=== PATIENT | female | born 1940 | race Caucasian/White ===

== ENCOUNTER → 2016-08-12 | Outpatient (CLI) | payer MEDICARE, BC ==
[~2016-08-12] MED LIST: CRESTOR5 MG PO; EPA/GLA1 SGL PO; EVISTA60 MG PO; FOLIC ACID 40400 MCG PO; IMODIUM A-D2 MG PO; IRON325 M1 PO; LEXAPRO 10MG10 MG PO; MULTIPLE VITAMI1 CAP PO; NORCO 325 MG-7.1 TAB PO; PEPCID 20MG TAB20 MG PO; ROXICODONE 55 MG/TAB PO; TYLENOL PM EXTR1 TA1 PO; VITAMIN C500 MG PO; VITAMIN D1000 IU PO; VITAMIN D5000 IU PO
== END ==
LOC: COL.RAD 14:49
DX: K44.9 Diaphragmatic hernia without obstruction or gangrene (principal); R10.11 Right upper quadrant pain
CPT/HCPCS: Q9967

== ENCOUNTER → 2016-10-06 | Outpatient (CLI) | payer MEDICARE, BC | LOC: MC.RAD 16:00 | DX: Z12.31 Encounter for screening mammogram for malignant neoplasm of breast (principal); R92.1 Mammographic calcification found on diagnostic imaging of breast ==

== ENCOUNTER 2017-12-19 11:38 | Day surgery (SDC) | payer MEDICARE, BC ==
[~2017-12-19] VITALS: Ht 157.5 cm; Wt 69.9 kg
[2017-12-19 12:11] VITALS: BP 93/61; PULSE 79; TEMP 98.7
[2017-12-19] MEDS ORDERED: EVISTA 60MG60 MG/TAB PO (12:11)
[2017-12-19 13:40] VITALS: BP 96/50; PULSE 69; TEMP 98.5
[2017-12-19 13:55] VITALS: BP 88/45; PULSE 63
[2017-12-19 14:10] VITALS: BP 96/53; PULSE 61
[2017-12-19 14:30] VITALS: BP 117/59; PULSE 62
== END 2017-12-19 14:55 | disposition home or self-care (01) ==
LOC: SDCO 11:38
DX: K64.0 First degree hemorrhoids (principal); R19.7 Diarrhea, unspecified; K44.9 Diaphragmatic hernia without obstruction or gangrene; Z86.010 Personal history of colon polyps; Z88.2 Allergy status to sulfonamides
CPT/HCPCS: J2250; J3010; J7030

== ENCOUNTER → 2018-07-31 | Outpatient (CLI) | payer MEDICARE, BC ==
[~2018-07-31] MED LIST changes: +EVISTA 60MG60 MG/TAB PO
== END ==
LOC: MC.RAD 09:00
DX: Z12.31 Encounter for screening mammogram for malignant neoplasm of breast (principal)

== ENCOUNTER → 2020-05-27 | Outpatient (CLI) | payer MEDICARE, BC | LOC: MC.RAD 14:45 | DX: Z12.31 Encounter for screening mammogram for malignant neoplasm of breast (principal) ==

== ENCOUNTER → 2021-01-26 | Outpatient (CLI) | payer MEDICARE, BC ==
--- NOTE | 2021-01-26 08:30 | NUR ---
Patient had caffine less than 8 hours before test. Will need to reschedule.
== END ==
LOC: COL.PUL 01-19 08:00
DX: R06.00 Dyspnea, unspecified (principal)

== ENCOUNTER → 2021-02-09 | Outpatient (CLI) | payer MEDICARE, BC | LOC: COL.PUL 07:53 | DX: R06.00 Dyspnea, unspecified (principal) ==

== ENCOUNTER 2024-02-02 13:41 | Emergency (ER) | payer MEDICARE, BC ==
[~2024-02-02] VITALS: Ht 154.9 cm; Wt 61.4 kg
[2024-02-02 13:47] VITALS: TEMP 97.9
[2024-02-02 14:25] LABS: BASO % 0.3 % (0.0-2.0); EOS # 0.1 K/mm3 (0.0-0.7); EOS % 1.3 % (0.0-4.0); GRAN # 4.1 K/mm3 (1.4-6.5); GRAN % 65.5 % (42.2-75.2); HEMOGLOBIN 13.4 g/dl (12.5-16.0); LYMPH # 1.4 K/mm3 (1.2-3.4); LYMPH % 22.3 % (20.0-51.0); MEAN CELL VOLUME 96 fl (80.0-100.0); MEAN CORPUSCULAR HEMOGLOBIN 34 pg (27-31); MEAN CORPUSCULAR HGB CONC 35 g/dl (33.0-37.0); MEAN PLATELET VOLUME 9.6 fl (7.4-10.4); MONO # 0.7 K/mm3 (0.1-0.6); MONO % 10.3 % (1.7-9.3); PLATELET COUNT 197 K/mm3 (130-400); RED BLOOD COUNT 3.97 M/mm3 (4.10-5.30)
[2024-02-02 14:44] LABS: ALANINE AMINOTRANSFERASE 24 U/L (0-55); ALKALINE PHOSPHATASE 67 U/L (40-150); ANION GAP 11 mmol/L (7-16); AST,SGOT 27 U/L (5-34); BILIRUBIN,TOTAL 0.5 mg/dL (0.2-1.2); BLOOD UREA NITROGEN 19 mg/dL (10-20); CALCIUM 9.8 mg/dL (8.4-10.2); CHLORIDE 104 mEq/L (98-107); CREATININE, serum 0.84 mg/dL (0.57-1.11); GLUCOSE 100 mg/dL (70-99); MAGNESIUM 1.9 mg/dL (1.6-2.6); POTASSIUM 4.3 mEq/L (3.5-4.5); SODIUM 137 mEq/L (136-145); TOTAL PROTEIN 6.4 g/dl (6.2-8.1)
[2024-02-02 14:52] LABS: TROPONIN-I < 0.010 ng/mL (0.00-0.033)
[2024-02-02] MEDS ORDERED: Iohexol 300 - 100 ML VIAL IV ONE (15:26)
[2024-02-02] MEDS ORDERED: NS 100 ML IV SCH (15:26)
[2024-02-02 16:08] LABS: COLLECTION METHOD CLEAN CATCH
[2024-02-02 16:21] LABS: URINE APPEARANCE CLEAR (CLEAR/HAZY); URINE BLOOD NEGATIVE (NEGATIVE); URINE COLOR YELLOW (YELLOW); URINE GLUCOSE NEGATIVE (NEGATIVE); URINE KETONE NEGATIVE (NEGATIVE); URINE NITRATE NEGATIVE (NEGATIVE); URINE PROTEIN(semi-quant) NEGATIVE (NEGATIVE); URINE UROBILINOGEN 0.2 E.U/dL (0.2-1.0)
[2024-02-02] MEDS ORDERED: Ketorolac 15 MG/ML VIAL IV ONE (16:30)
[2024-02-02 16:36] VITALS: BP 157/79; PULSE 58
== END 2024-02-02 16:45 | disposition home or self-care (01) ==
LOC: COL.ER 13:41
PROVIDERS: Emergency Medicine
DX: R91.1 Solitary pulmonary nodule (principal); R07.81 Pleurodynia
CPT/HCPCS: J1885; Q9967

== ENCOUNTER 2024-04-03 10:39 | Emergency (ER) | payer MEDICARE, BC ==
[~2024-04-03] VITALS: Ht 154.9 cm; Wt 59.1 kg
[~2024-04-03 10:39] MED LIST changes: -LEXAPRO 10MG10 MG PO; +LEXAPRO 5MG5 MG PO
[2024-04-03 10:44] VITALS: TEMP 97.6
[2024-04-03] MEDS ORDERED: NS 1,000 ML IV ONE (12:30)
[2024-04-03] MEDS ORDERED: Ondansetron 4 MG/2 ML VIAL IV ONE (12:30)
[2024-04-03 13:04] LABS: BASO % 0.4 % (0.0-2.0); EOS # 0.1 K/mm3 (0.0-0.7); EOS % 1.1 % (0.0-4.0); GRAN # 7.2 K/mm3 (1.4-6.5); GRAN % 77.4 % (42.2-75.2); HEMATOCRIT 38.6 % (37.0-47.0); HEMOGLOBIN 13.4 g/dl (12.5-16.0); LYMPH # 1.2 K/mm3 (1.2-3.4); LYMPH % 12.4 % (20.0-51.0); MEAN CELL VOLUME 99 fl (80.0-100.0); MEAN CORPUSCULAR HEMOGLOBIN 34 pg (27-31); MEAN CORPUSCULAR HGB CONC 35 g/dl (33.0-37.0); MEAN PLATELET VOLUME 9.7 fl (7.4-10.4); MONO # 0.8 K/mm3 (0.1-0.6); MONO % 8.4 % (1.7-9.3); PLATELET COUNT 189 K/mm3 (130-400); REDCELL DISTRIBUTION WIDTH-CV 13.1 % (11.5-14.5)
[2024-04-03 13:06] LABS: INR 1.1 (0.8-3.0); PROTHROMBIN TIME 11.5 SECONDS (9.7-12.8)
[2024-04-03 13:15] LABS: COLLECTION METHOD CLEAN CATCH
[2024-04-03 13:19] LABS: ALANINE AMINOTRANSFERASE 22 U/L (0-55); ALBUMIN 3.8 g/dL (3.4-4.8); ALKALINE PHOSPHATASE 68 U/L (40-150); ANION GAP 11 mmol/L (7-16); AST,SGOT 26 U/L (5-34); BILIRUBIN,TOTAL 0.5 mg/dL (0.2-1.2); BLOOD UREA NITROGEN 21 mg/dL (10-20); CALCIUM 9.9 mg/dL (8.4-10.2); CHLORIDE 104 mEq/L (98-107); CREATININE, serum 0.78 mg/dL (0.57-1.11); GLUCOSE 96 mg/dL (70-99); POTASSIUM 4.4 mEq/L (3.5-4.5); SODIUM 140 mEq/L (136-145); TOTAL PROTEIN 6.5 g/dl (6.2-8.1)
[2024-04-03 13:22] LABS: PH 6.5 (5.0-8.5); URINE APPEARANCE CLEAR (CLEAR/HAZY); URINE BLOOD NEGATIVE (NEGATIVE); URINE COLOR YELLOW (YELLOW); URINE GLUCOSE NEGATIVE (NEGATIVE); URINE KETONE NEGATIVE (NEGATIVE); URINE NITRATE NEGATIVE (NEGATIVE); URINE PROTEIN(semi-quant) NEGATIVE (NEGATIVE); URINE UROBILINOGEN 0.2 E.U/dL (0.2-1.0)
[2024-04-03 13:42] LABS: TROPONIN-I < 0.010 ng/mL (0.00-0.033)
[2024-04-03 13:55] LABS: LIPASE 33 U/L (8-78)
[2024-04-03] MEDS ORDERED: NS 100 ML IV SCH (14:15)
[2024-04-03] MEDS ORDERED: Iohexol 300 - 100 ML VIAL IV ONE (14:15)
[2024-04-03] MEDS ORDERED: ZOFRAN ODT4 MG PO (15:49)
[2024-04-03 16:05] VITALS: BP 101/63; PULSE 72
[2024-04-08] MEDS ORDERED: BUSPAR5 MG PO (13:08)
[2024-04-08] MEDS ORDERED: BENTYL 10MG10 MG/CAP PO (13:09)
[2024-04-08] MEDS ORDERED: NORVASC2.5 MG PO (13:09)
[2024-04-08] MEDS ORDERED: IMODIUM 2MG CAPS2 MG PO (13:11)
[2024-04-08] MEDS ORDERED: ALDACTONE 25MG25 M1 PO (13:12)
== END 2024-04-03 16:26 | disposition home or self-care (01) ==
LOC: COL.ER 10:39
PROVIDERS: Family Medicine
DX: K52.9 Noninfective gastroenteritis and colitis, unspecified (principal)
CPT/HCPCS: J2405; J7030; Q9967